=== PATIENT | male | born 1980 | race Hispanic/Latino ===

== ENCOUNTER 2017-07-08 18:21 | Emergency (ER) | payer BC ==
[~2017-07-08] VITALS: Ht 167.6 cm; Wt 85.7 kg
[2017-07-08] MEDS ORDERED: TAMSULOSIN HCL 0.4 MG CAP PO SCH (19:00)
[2017-07-08] MEDS ORDERED: SODIUM CHLORIDE 0.9% 1000ML 1,000 ML IV SCH (19:00)
[2017-07-08] MEDS ORDERED: MORPHINE SULFATE 4 MG/ML SYR IV STA (19:32)
[2017-07-08] MEDS ORDERED: HYDROCODONE/APAP 5MG-325MG TAB PO ONE (20:00)
== END 2017-07-08 20:34 | disposition home or self-care (01) ==
LOC: FSED 18:21
DX: R10.9 Unspecified abdominal pain (principal); Z87.442 Personal history of urinary calculi
CPT/HCPCS: 87086; 99284; J2270

== ENCOUNTER 2017-07-22 17:39 | Emergency (ER) | payer BC ==
[~2017-07-22] VITALS: Ht 167.6 cm; Wt 85.7 kg
[2017-07-22 18:49] LABS: BASOPHILS % 0.3 % (0.0-1.0); EOSINOPHILS # (AUTO) 0.2 (0.0-0.4); EOSINOPHILS % 2.1 % (0.0-6.0); HEMATOCRIT 41.4 % (38.2-49.6); LYMPHOCYTES # (AUTO) 1.6 (1.0-3.2); LYMPHOCYTES % 19.9 % (18.0-39.1); MEAN CORPUSCULAR HEMOGLOBIN 29.4 pg (28-32); MEAN CORPUSCULAR HGB CONC 36.2 g/dL (31-35); MEAN CORPUSCULAR VOLUME 81.2 fL (81-99); MONOCYTES # (AUTO) 0.5 (0.2-0.8); MONOCYTES % 6.4 % (4.4-11.3); NEUTROPHILS # (AUTO) 5.5 (2.1-6.9); NEUTROPHILS % 70.4 % (38.7-80.0); PLATELET COUNT 208 x10e3/uL (140-360); RED CELL DISTRIBUTION WIDTH 12.5 % (11.7-14.4)
[2017-07-22 18:53] LABS: BILIRUBIN,URINE NEGATIVE (NEGATIVE); CLARITY,URINE SL CLOUDY (CLEAR); COLOR,URINE YELLOW (YELLOW); KETONES,URINE NEGATIVE (NEGATIVE); LEUKOCYTE ESTERASE ,URINE NEGATIVE (NEGATIVE); NITRITE,URINE NEGATIVE (NEGATIVE); PROTEIN,URINE DIPSTICK NEGATIVE (NEGATIVE); URINE UROBILINOGEN 0.2 mg/dL (0.2 - 1)
[2017-07-22 19:04] LABS: ALANINE AMINOTRANSFERASE 56 IU/L (0-55); ALBUMIN 4.1 g/dL (3.5-5.0); ALBUMIN/GLOBULIN RATIO 1.6 (0.8-2.0); ALKALINE PHOSPHATASE 66 IU/L (40-150); ANION GAP 12.7 mmol/L (8-16); BLOOD UREA NITROGEN 14 mg/dL (7-26); BUN/CREATININE RATIO 17 (6-25); CALCIUM 9.6 mg/dL (8.4-10.2); CARBON DIOXIDE 24 mmol/L (22-29); CHLORIDE 108 mmol/L (98-107); CREATININE, SERUM 0.82 mg/dL (0.72-1.25); EST GLOMERULAR FILTRATION RATE > 60 ML/MIN (60-); GLUCOSE 132 mg/dL (74-118); POTASSIUM 3.7 mmol/L (3.5-5.1); SODIUM 141 mmol/L (136-145)
[2017-07-22 19:07] LABS: BACTERIA,URINE FEW /HPF; HYALINE CASTS 0-1 (0-1); RBC,URINE 0-5 /HPF (0-5); WBC,URINE (MAN) 0-5 /HPF (0-5)
[2017-07-22 19:08] LABS: EPITHELIAL CELLS,URINE FEW /LPF
[2017-07-22] MEDS ORDERED: KETOROLAC TROMETHAMINE 30 MG/ML VIAL IV STA (19:23)
[2017-07-22] MEDS ORDERED: SODIUM CHLORIDE 0.9% 1000ML 1,000 ML IV SCH (19:30)
--- NOTE | 2017-07-22 20:08 | Diagnostic Imaging Report ---
EXAM: CT Abdomen and Pelvis WITHOUT contrast INDICATION: \S\R/O KIDNEY STONES \[id number] \S\1928 \S\Y COMPARISON: None. TECHNIQUE: Abdomen and pelvis were scanned utilizing a multidetector helical scanner from the lung base to the pubic symphysis without administration of IV contrast. Absence of intravenous contrast decreases sensitivity for detection of focal lesions and vascular pathology. Coronal and sagittal reformations were obtained. Routine protocol was performed. IV CONTRAST: None ORAL CONTRAST: Water COMPLICATIONS: None RADIATION DOSE: Total DLP: ... mGy*cm Estimated effective dose: (DLP x 0.015 x size factor) mSv CTDIvol has been reviewed. It is below the limits set by the Radiation Protocol Committee (RPC). FINDINGS: LINES and TUBES: None. LOWER THORAX: Unremarkable HEPATOBILIARY: The liver is diffusely hypodense consistent with hepatic steatosis. No focal hepatic lesions. No biliary ductal dilation. GALLBLADDER: No radio-opaque stones or sludge. No wall thickening. SPLEEN: No splenomegaly. PANCREAS: No focal masses or ductal dilatation. ADRENALS: No adrenal nodules KIDNEYS/URETERS: No hydronephrosis. No cystic or solid mass lesions. A 0.4 x 0.3 x 0.4 cm calculus at the right ureterovesicular junction results in minimal inflammatory changes of the ureter without hydronephrosis. No additional urinary tract calculi noted. GI TRACT: No abnormal distention, wall thickening, or evidence of bowel obstruction. Appendix is normal. PELVIC ORGANS/BLADDER: Unremarkable. LYMPH NODES: No lymphadenopathy. VESSELS: Unremarkable. PERITONEUM / RETROPERITONEUM: No free air or fluid. BONES: Unremarkable. SOFT TISSUES: Fat-containing indirect right inguinal hernia. IMPRESSION: Right ureterovesicular junction 0.4 cm calculus is without upstream hydroureteronephrosis. Hepatic steatosis. Signed by: DR. Chandana Salmon MD on 07/22/2017 8:05 PM
[2017-07-22 21:26] VITALS: BP 138/79
== END 2017-07-22 21:35 | disposition home or self-care (01) ==
LOC: ER 17:39
DX: N20.0 Calculus of kidney (principal); J45.909 Unspecified asthma, uncomplicated
CPT/HCPCS: 36415; 74176; 80053; 81001; 85025; 99284; J1885; J7030

== ENCOUNTER 2019-12-29 20:22 | Emergency (ER) | payer SELFPAY ==
[~2019-12-29] VITALS: Ht 167.6 cm; Wt 85.7 kg
[2019-12-29] MEDS ORDERED: KETOROLAC TROMETHAMINE 60 MG/2 ML VIAL IM ONE (20:45)
[2019-12-29] MEDS ORDERED: KETOROLAC TROMETHAMINE 30 MG/ML VIAL ONE (20:59)
--- NOTE | 2019-12-29 21:24 | Diagnostic Imaging Report ---
EXAM: CT Abdomen and Pelvis WITHOUT contrast INDICATION: Right flank pain for 3 days COMPARISON: CT abdomen and pelvis on 07/22/2017. TECHNIQUE: Abdomen and pelvis were scanned utilizing a multidetector helical scanner from the lung base to the pubic symphysis without administration of IV contrast. Absence of intravenous contrast decreases sensitivity for detection of focal lesions and vascular pathology. Coronal and sagittal reformations were obtained. Routine protocol was performed. IV CONTRAST: None ORAL CONTRAST: None COMPLICATIONS: None RADIATION DOSE: Total DLP: 811 mGy*cm Estimated effective dose: (DLP x 0.015 x size factor) mSv CTDIvol has been reviewed. It is below the limits set by the Radiation Protocol Committee (RPC). Dose modulation, iterative reconstruction, and/or weight based adjustment of the mA/kV was utilized to reduce the radiation dose to as low as reasonably achievable. FINDINGS: LINES and TUBES: None. LOWER THORAX: Unremarkable HEPATOBILIARY: The liver is diffuse hypodense compared to the spleen, consistent with diffuse hepatic diffuse hepatic steatosis. No focal hepatic lesions. No biliary ductal dilation. GALLBLADDER: No radio-opaque stones or sludge. No wall thickening. SPLEEN: No splenomegaly. PANCREAS: No focal masses or ductal dilatation. ADRENALS: No adrenal nodules KIDNEYS/URETERS: No hydronephrosis. No cystic or solid mass lesions. No stones. GI TRACT: No abnormal distention, wall thickening, or evidence of bowel obstruction. Appendix is normal. PELVIC ORGANS/BLADDER: Unremarkable. LYMPH NODES: No lymphadenopathy. VESSELS: Unremarkable. PERITONEUM / RETROPERITONEUM: No free air or fluid. BONES: Unremarkable. SOFT TISSUES: Unremarkable. IMPRESSION: 1. No obstructive renal or ureteral stones bilaterally. No acute abnormality to explain the patient's symptoms were identified. 2. Mild hepatic steatosis. Signed by: Ketan Ball MD on 12/29/2019 9:21 PM
--- NOTE | 2019-12-29 21:50 | Emergency Department Note ---
History of Present Illnes History of Present Illness Chief Complaint: right lower Back Pain/ rgt flank History of Present Illness This is a 39 year old male. was doing well prior to this Historian: Patient Arrival Mode: Car History limited by: condition of the patient (normal) Regulatory Law Specialist Required: No Onset (how long ago): day(s) (2) Location: see above Radiation: Reports non-radiation Severity: moderate Onset quality: gradual Duration (how long): day(s) (2) Timing of current episode: constant Progression: worsening Chronicity: new Context: Denies recent illness, Denies recent surgery, Denies recent immobilization, Denies recent travel, Denies trauma/injury, Denies new medications, Denies hx of DVT/PE, Denies non-compliance w/ medications Relieving factors: rest Exacerbating factors: movement Associated symptoms: Reports denies other symptoms Treatments prior to arrival: none Past Medical/Family History Physician Review I have reviewed the patient's past medical and family history. Any updates have been documented here. Past Medical History Recent Fever: No Clinical Suspicion of Infectio: No New/Unexplained Change in Ment: No Past Medical History: Asthma, Kidney Stones Past Surgical History: None Other Surgery: STENT IN KIDNEY Social History Smoking Cessation: Never Smoker Counseling Performed: No Alcohol Use: None Any Illegal Drug Use: No Physically hurt or threatened: No Other Last Tetanus: UTD Any Pre-Existing Lines (PICC,: No Review of Systems Review of Systems Constitutional: Reports no symptoms EENTM: Reports no symptoms Cardiovascular: Reports no symptoms Respiratory: Reports no symptoms Gastrointestinal: Reports no symptoms Genitourinary: Reports no symptoms Musculoskeletal: Reports as per HPI Integumentary: Reports no symptoms Neurological: Reports no symptoms Psychological: Reports no symptoms Endocrine: Reports no symptoms Hematological/Lymphatic: Reports no symptoms Review of other systems: All other systems negative Physical Exam Related Data Allergies: Coded Allergies: No Known Allergies (Unverified , 07/08/17) Triage Vital Signs Vital Signs Date Time Temp Pulse Resp B/P (MAP) Pulse Ox O2 Delivery O2 Flow Rate FiO2 12/29/19 20:34 98.7 89 18 175/99 100 Room Air Vital signs reviewed: Yes Physical Exam CONSTITUTIONAL Constitutional: Present well-developed, Present well-nourished HENT HENT: Present normocephalic, Present atraumatic, Present oropharynx clear/moist, Present nose normal HENT L/R: Present left ext ear normal, Present right ext ear normal EYES Eyes: Reports PERRL, Reports conjunctivae normal NECK Neck: Present ROM normal, Present supple PULMONARY Pulmonary: Present effort normal, Present breath sounds normal CARDIOVASCULAR Cardiovascular: Present regular rhythm, Present heart sounds normal, Present capillary refill normal, Present normal rate GASTROINTESTINAL Abdominal: Present soft, Present nontender, Present bowel sounds normal GENITOURINARY Genitourinary: Present exam deferred SKIN Skin: Present warm, Present dry MUSCULOSKELETAL Musculoskeletal: Present ROM normal, Present tenderness (rgt cva tenderness) NEUROLOGICAL Neurological: Present alert, Present oriented x 3, Present no gross motor or sensory deficits PSYCHOLOGICAL Psychological: Present mood/affect normal, Present judgement normal Results Laboratory Lab results reviewed: Yes Laboratory comments ua sp gravity greater than 1.03 Imaging Imaging results reviewed: Yes Impressions [place] [id number] Patient Name: JEOVANY VILLA JR MR #: [id number] : 1980 Age/Sex: 39/M Req #: [id number] Adm Physician: Ordered by: CHARLINE PRADO Report #: [id number] Location: [facility] Room/Bed: Procedure: [id number] HOPD/CT ABD/PEL WO CONTRAST-HOPD Exam Date: Exam Time: REPORT STATUS: Signed EXAM: CT Abdomen and Pelvis WITHOUT contrast INDICATION: Right flank pain for 3 days COMPARISON: CT abdomen and pelvis on 07/22/2017. TECHNIQUE: Abdomen and pelvis were scanned utilizing a multidetector helical scanner from the lung base to the pubic symphysis without administration of IV contrast. Absence of intravenous contrast decreases sensitivity for detection of focal lesions and vascular pathology. Coronal and sagittal reformations were obtained. Routine protocol was performed. IV CONTRAST: None ORAL CONTRAST: None COMPLICATIONS: None RADIATION DOSE: Total DLP: 811 mGy*cm Estimated effective dose: (DLP x 0.015 x size factor) mSv CTDIvol has been reviewed. It is below the limits set by the Radiation Protocol Committee (RPC). Dose modulation, iterative reconstruction, and/or weight based adjustment of the mA/kV was utilized to reduce the radiation dose to as low as reasonably achievable. FINDINGS: LINES and TUBES: None. LOWER THORAX: Unremarkable HEPATOBILIARY: The liver is diffuse hypodense compared to the spleen, consistent with diffuse hepatic diffuse hepatic steatosis. No focal hepatic lesions. No biliary ductal dilation. GALLBLADDER: No radio-opaque stones or sludge. No wall thickening. SPLEEN: No splenomegaly. PANCREAS: No focal masses or ductal dilatation. ADRENALS: No adrenal nodules KIDNEYS/URETERS: No hydronephrosis. No cystic or solid mass lesions. No stones. GI TRACT: No abnormal distention, wall thickening, or evidence of bowel obstruction. Appendix is normal. PELVIC ORGANS/BLADDER: Unremarkable. LYMPH NODES: No lymphadenopathy. VESSELS: Unremarkable. PERITONEUM / RETROPERITONEUM: No free air or fluid. BONES: Unremarkable. SOFT TISSUES: Unremarkable. IMPRESSION: 1. No obstructive renal or ureteral stones bilaterally. No acute abnormality to explain the patient's symptoms were identified. 2. Mild hepatic steatosis. Signed by: Doroteo Marquez MD on 12/29/2019 9:21 PM Dictated By: DOROTEO MARUQEZ MD 20 Transcribed By: CLIFF on 12/29/192120 COPY TO: CHARLINE PRADO~ Assessment & Plan Medical Decision Making MDM uti, kidney stone Assessment & Plan Final Impression: (1) Muscle strain (2) Dehydration Depart Disposition: HOME, SELF-CARE Last Vital Signs Date Time Temp Pulse Resp B/P (MAP) Pulse Ox O2 Delivery O2 Flow Rate FiO2 12/29/19 20:34 98.7 89 18 175/99 100 Room Air Home Meds Active Scripts Cyclobenzaprine Hcl (FLEXERIL) 5 Mg Tablet, 10 MG PO Q8H PRN for MUSCLE SPASMS, #30 TAB take after toradol to control pain if need be Prov:CHARLINE PRADO 12/29/19 Ketorolac Tromethamine (TORADOL) 10 Mg Tablet, 10 MG PO Q6H PRN for MODERATE PAIN (4-6), #20 TAB Prov:CHARLINE PRADO 12/29/19 Medications in the ED Ketorolac Tromethamine 60 mg ONCE ONCE IM Last administered on 12/29/19at 21:00; Admin Dose 60 MG; Start 12/29/19 at 20:45; Stop 12/29/19 at 20:46; Status DC Ketorolac Tromethamine 60 mg STK-MED ONCE .ROUTE ; Start 12/29/19 at 20:59; Stop 12/29/19 at 20:54; Status DC CHARLINE PRADO Dec 29, 2019 21:50
[2019-12-29] MEDS ORDERED: KETOROLAC TROME10 MG PO (21:56)
[2019-12-29] MEDS ORDERED: CYCLOBENZAPRINE5 MG PO (21:56)
--- OUTSIDE RECORDS SUMMARY | 2019-12-29 23:22 | XMS REPORT | Continuity of Care Document ---
Author Author [facility] t Organization [facility] Address [address] [place] [address] Phone Unavailable Care Team Providers Care Test Department Helper Name Role Phone NO, PCP PCP Unavailable Jimena PRADO Attphys Unavailable Ravi MONIQUE Attphys Unavailable Payers Payer Name Policy Type Policy Number Effective Date Expiration Date S jimy [employer] [place] [employer] [place] Ppo [id number] I [facility] Problems This patient has no known problems. Allergies, Adverse Reactions, Alerts This patient has no known allergies or adverse reactions. Medications This patient has no known medications. Procedures Procedure Date / Time Performed Performing Clinician Sour e CT of abdomen and pelvis without contrast 2017-07-22 00:00:0 0 NIRANJAN MONIQUE [facility] Encounters Start Date/Time End Date/Time Encounter Type Admission Type Attendi [facility] Care Department Encounter ID Source 2017-07-22 17:39:00 2017-07-22 21:35:00 Departed Emergency Room 1 NIRANJAN MONIQUE [facility] [id number] [facility] 2017-07-08 18:21:00 2017-07-08 20:34:00 Departed Emergency Room [facility] [id number] [facility] Results Test Description Test Time Test Comments Results Result Comments Source CT ABD/PEL WO CONTRAST-HOPD 2019-12-29 21:16:00 [facility] : 1980 Sex: M [facility] [address] [address] Patient Name: JEOVNAY VILLA JR MR #: [id number] : 1980 Age/Sex: 39/M Req #: [id number] Adm Physician: Ordered by: CHARLINE PRADO Report #: [id number] Location: [facility] Room/Bed: Procedure: [id number] HOPD/CT ABD/PEL WO CONTRAST-HOPD Exam Date: Exam Time: REPORT STATUS: Signed EXAM: CT Abdomen and Pelvis WITHOUT contrast INDICATION: Right flank pain for 3 days COMPARISON: CT abdomen and pelvis on 07/22/2017. TECHNIQUE: Abdomen and pelvis were scanned utilizing a multidetector helical scanner from the lung base to the pubic symphysis without administration of IV contrast. Absence of intravenous contrast decreases sensitivity for detection of focal lesions and vascular pathology. Coronal and sagittal reformations were obtained. Routine protocol was performed. IV CONTRAST: None ORAL CONTRAST: None COMPLICATIONS: None RADIATION DOSE: Total DLP: 811 mGy*cm Es timated effective dose: (DLP x 0.015 x size factor) mSv CTDIvol has been reviewed. It is below the limits set by the Radiation Protocol Committee (RPC). Dose modulation, iterative reconstruction, and/or weight based adjustment of the mA/kV was utilized to reduce the radiation dose to as low as reasonably achievable. FINDINGS: LINES and TUBES: None. LOWER THORAX: Unremarkable HEPATOBILIARY: The liver is diffuse hypodense compared to the spleen, consistent with diffuse hepatic diffuse hepatic steatosis. No focal hepatic lesions. No biliary ductal dilation. GALLBLADDER: No radio-opaque stones or sludge. No wall thickening. SPLEEN: No splenomegaly. PANCREAS: No focal masses or ductal dilatation. ADRENALS: No adrenal nodules KIDNEYS/URETERS: No hydronephrosis. No cystic or solid mass lesions. No stones. GI TRACT: No abnormal distention, wall thickening, or evidence of bowel obstruction. Appendix is normal. PELVIC ORGANS/BLADDER: Unremarkable. LYMPH NODES: No lymphadenopathy. VESSELS: Unremarkable. PERITONEUM / RETROPERITONEUM: No free air or fluid. BONES: Unremarkable. SOFT TISSUES: Unremarkable. IMPRESSION: 1. No obstructive renal or ureteral stones bilaterally. No acute abnormality to explain the patient's symptoms were identified. 2. Mild hepatic steatosis. Signed by: Doroteo Marquez MD on 12/29/2019 9:21 PM Dictated By: DOROTEO MARQUEZ MD 20 Transcribed By: CLIFF on 12/29/192120 COPY TO: CHARLINE PRADO CT ABDOMEN/PELVIS WO 2017-07-22 19:58:[address] [address] Patient Name: JEOVANY VILLA JR MR #: [id number] : 1980 Age/Sex: 37/M Req #: [id number] Adm Physician: Ordered by: NIRANJAN MONIQUE MD Report #: [id number] Location: ER Room/Bed: Procedure: [id number] CT/CT ABDOMEN/PELVIS WO Exam Date: 07/22/17 Exam Time: 1929 REPORT STATUS: Signed EXAM: CT Abdomen and Pelvis WITHOUT contrast INDICATION: COMPARISON: None. TECHNIQUE: Abdomen and pelvis were scanned utilizing a multidetector helical scanner from the lung base to the pubic symphysis without administration of IV contrast. Absence of intravenous contrast decreases sensitivity for detection of focal lesions and vascular pathology. Coronal and sagittal reformations were obtained. Routine protocol was performed. IV CONTRAST: None ORAL CONTRAST: Water COMPLICATIONS: None RADIATION DOSE: Total DLP: ... mGy*cm Estimated effective dose: (DLP x 0.015 x size factor) mSv CTDIvol has been reviewed. It is below the limits set by the Radiation Protocol Committee (RPC). FINDINGS: LINES and TUBES: None. LOWER THORAX: Unremarkable HEPATOBILIARY: The liver is diffusely hypodense consistent with hepatic steatosis. No focal hepatic lesions. No biliary ductal dilation. GALLBLADDER: No radio-opaque stones or sludge. No wall thickening. SPLEEN: No splenomegaly. PANCREAS: No focal masses or ductal dilatation. ADRENALS: No adrenal nodules KIDNEYS/URETERS: No hydronephrosis. No cystic or solid mass lesions. A 0.4 x 0.3 x 0.4 cm calculus at the right ureterovesicular junction results in minimal inflammatory changes of the ureter without hydronephrosis. No additional urinary tract calculi noted. GI TRACT: No abnormal distention, wall thickening, or evidence of bowel obstruction. Appendix is normal. PELVIC ORGANS/BLADDER: Unremarkable. LYMPH NODES: No lymphadenopathy. VESSELS: Unremarkable. PERITONEUM / RETROPERITONEUM: No free air or fluid. BONES: Unremarkable. SOFT TISSUES: Fat-containing indirect right inguinal hernia. IMPRESSION: Right ureterovesicular junction 0.4 cm calculus is without upstream hydroureteronephrosis. Hepatic steatosis. Signed by: DR. Chandana Dickens MD on 07/22/2017 8:05 PM Dictated By: CHANDANA DICKENS MD 04 Transcribed By: CLIFF on 07/22/172004 COPY TO: NIRANJAN MONIQUE MD Urine Epithelial Cells 2017-07-22 19:08:00 Test Item Urine Epithelial Cells (test code = 40004-1) FEW NONE [facility] [id number] 19:07:00* Test Item Value Reference Range Interpretation Comments Urine WBC (test code = 5821-4) 0-5 0-5 [facility] [id number] 19:07:00* Test Item Value Reference Range Interpretation Comments Urine RBC (test code = 15811-0) 0-5 0-5 [facility] Fuqzimsy2648-01-55 19:07:00* Test Item Value Reference Range Interpretation Comments Urine Bacteria (test code = 07527-7) FEW NONE [facility] Hyaline Ejqdd1686-62-26 19:07:00* Test Item Value Reference Range Interpretation Comments Urine Hyaline Casts (test code = 71295-9) 0-1 0-1 [facility] Etqcm9655-96-83 19:04:00* Test Item Value Reference Range Interpretation Comments Sodium Level (test code = 2951-2) 141 136-145 [facility] CenterPotassium Fuitk1951-30-84 19:04:00* Test Item Value Reference Range Interpretation Comments Potassium Level (test code = 2823-3) 3.7 3.5-5.1 [facility] CenterChloride Sgzud0651-21-42 19:04:00* Test Item Value Reference Range Interpretation Comments Chloride Level (test code = 2075-0) 108 98-107 H [facility] CenterCarbon Dioxide Agdpv1797-88-08 19:04:00* Test Item Value Reference Range Interpretation Comments Carbon Dioxide Level (test code = 2028-9) 24 22-29 [facility] CenterAnion Qgf5849-06-61 19:04:00* Test Item Value Reference Range Interpretation Comments Anion Gap (test code = 31817-7) 12.7 8-16 [facility] CenterBlood Urea Jjhqyypu4378-08-27 19:04:00* Test Item Value Reference Range Interpretation Comments Blood Urea Nitrogen (test code = 3094-0) 14 7-26 [facility] CenterCreatinine2018 19:04:00* Test Item Value Reference Range Interpretation Comments Creatinine (test code = 2160-0) 0.82 0.72-1.25 [facility] CenterBUN/Creatinine Ejttp6782-83-64 19:04:00* Test Item Value Reference Range Interpretation Comments BUN/Creatinine Ratio (test code = 3097-3) 17 6-25 [facility] CenterEstimat Glomerular Filtration Rate 2017-07-22 19:04:00* Test Item Value Reference Range Interpretation Comments Estimat Glomerular Filtration Rate (test code = 58240-8) 60- >60 Ranges were taken from the National Kidney Disease Education Program and the [facility] Foundation literature.Reference ranges:60 or greater: Dcrzpt71-59 ( for 3 consecutive months): Chronic kidney disease 15 or less: Kidney failureP[facility] Medical CenterGlucose Ipncr0607-62-91 19:04:00* Test Item Value Reference Range Interpretation Comments Glucose Level (test code = BNC7728) 132 74-118 H [facility] CenterCalcium Itfjs9349-63-92 19:04:00* Test Item Value Reference Range Interpretation Comments Calcium Level (test code = 56059-8) 9.6 8.4-10.2 [facility] CenterTotal Fypfsjurh8715-44-39 19:04:00* Test Item Value Reference Range Interpretation Comments Total Bilirubin (test code = 1975-2) 0.4 0.2-1.2 [facility] CenterAspartate Amino Transf (AST/SGOT) 2017-07-22 19:04:00* Test Item Value Reference Range Interpretation Comments Aspartate Amino Transf (AST/SGOT) (test code = Aspartate Amino Transf (AST/SGOT)) 24 5-34 [facility] CenterAlanine Aminotransferase (ALT/SGPT) 2017-07-22 19:04:00* Test Item Value Reference Range Interpretation Comments Alanine Aminotransferase (ALT/SGPT) (test code = 1742-6) 56 0-55 H [facility] CenterTotal Ktqfavq4945-75-19 19:04:00* Test Item Value Reference Range Interpretation Comments Total Protein (test code = 2885-2) 6.6 6.5-8.1 [facility] CenterAlbumin2018 19:04:00* Test Item Value Reference Range Interpretation Comments Albumin (test code = 1751-7) 4.1 3.5-5.0 [facility] CenterGlobulin2018 19:04:00* Test Item Value Reference Range Interpretation Comments Globulin (test code = 00383-2) 2.5 2.3-3.5 [facility] CenterAlbumin/Globulin Pqoyh7145-21-68 19:04:00 * Test Item Value Reference Range Interpretation Comments Albumin/Globulin Ratio (test code = 1759-0) 1.6 0.8-2.0 [facility] CenterAlkaline Uovqctaejrn5696-03-12 19:04:00* Test Item Value Reference Range Interpretation Comments Alkaline Phosphatase (test code = 6768-6) 66 40-150 [facility] CenterUrine Blqyx3455-76-55 18:53:00* Test Item Value Reference Range Interpretation Comments Urine Color (test code = 5778-6) YELLOW YELLOW [facility] CenterU[facility] Kplopxd5156-25-98 18:53:00* Test Item Value Reference Range Interpretation Comments Urine Clarity (test code = 64508-4) SL CLOUDY CLEAR H [facility] CenterUrine Specific Sezbodn3722-30-00 18:53:00 * Test Item Value Reference Range Interpretation Comments Urine Specific [place] (test code = 5811-5) 1.025 1.010-1.02 5 [facility] CenterU[facility] vE3640-31-31 18:53:00* Test Item Value Reference Range Interpretation Comments Urine pH (test code = 45291-0) 6 5-7 [facility] Center[facility] Leukocyte Iszzmobp0672-36-31 18:53:00* Test Item Value Reference Range Interpretation Comments Urine Leukocyte Esterase (test code = 5799-2) NEGATIVE NEGATIVE [facility] CenterU[facility] Whasidh9642-88-61 18:53:00* Test Item Value Reference Range Interpretation Comments Urine Nitrite (test code = 89571-0) NEGATIVE NEGATIVE [facility] CenterU[facility] Nueqsfi1971-32-32 18:53:00* Test Item Value Reference Range Interpretation Comments Urine Protein (test code = 5804-0) NEGATIVE NEGATIVE [facility] CenterUrine Glucose (UA)2017-07-22 18:53:00* Test Item Value Reference Range Interpretation Comments Urine Glucose (UA) (test code = 2349-9) NEGATIVE NEGATIVE [facility] CenterUrine Uwkrerv1577-02-41 18:53:00* Test Item Value Reference Range Interpretation Comments Urine Ketones (test code = 53946-4) NEGATIVE NEGATIVE [facility] CenterU[facility] Igthoovmogpk8738-80-35 18:53:00* Test Item Value Reference Range Interpretation Comments Urine Urobilinogen (test code = 88538-1) 0.2 0.2-1 [facility] CenterU[facility] Ygviliyxh7965-00-84 18:53:00* Test Item Value Reference Range Interpretation Comments Urine Bilirubin (test code = 1978-6) NEGATIVE NEGATIVE [facility] CenterU[facility] Vatfu1514-25-33 18:53:00* Test Item Value Reference Range Interpretation Comments Urine Blood (test code = 52947-9) TRACE NEGATIVE H [facility] CenterWhite Blood Piclk0214-44-38 18:50:00* Test Item Value Reference Range Interpretation Comments White Blood Count (test code = 6690-2) 7.79 4.8-10.8 [facility] CenterRed Blood Sdjjy9595-73-59 18:50:00* Test Item Value Reference Range Interpretation Comments Red Blood Count (test code = 789-8) 5.10 4.3-5.7 [facility] CenterHemoglobin2018 18:50:00* Test Item Value Reference Range Interpretation Comments Hemoglobin (test code = 27454-8) 15.0 14.0-18.0 [facility] CenterHematocrit2018 18:50:00* Test Item Value Reference Range Interpretation Comments Hematocrit (test code = 4544-3) 41.4 38.2-49.6 [facility] CenterMean Corpuscular Ytndnp4085-22-57 18:50:00* Test Item Value Reference Range Interpretation Comments Mean Corpuscular Volume (test code = 787-2) 81.2 81-99 [facility] CenterMean Corpuscular Ecelhsrifz4848-01-46 18:50:00* Test Item Value Reference Range Interpretation Comments Mean Corpuscular Hemoglobin (test code = 785-6) 29.4 28-32 [facility] CenterMean Corpuscular Hemoglobin Concent 2017-07-22 18:50:00* Test Item Value Reference Range Interpretation Comments Mean Corpuscular Hemoglobin Concent (test code = 786-4) 36.2 31-35 H [facility] CenterRed Cell Distribution Ovqld6747-83-25 18:50:00* Test Item Value Reference Range Interpretation Comments Red Cell Distribution Width (test code = 73380-3) 12.5 11.7 -14.4 [facility] CenterPlatelet Nsvjn5490-26-62 18:50:00* Test Item Value Reference Range Interpretation Comments Platelet Count (test code = 777-3) 208 140-360 [facility] CenterNeutrophils (%) (Auto)2017-07-22 18:50:00 * Test Item Value Reference Range Interpretation Comments Neutrophils (%) (Auto) (test code = 58926-1) 70.4 38.7-80.0 [facility] CenterLymphocytes (%) (Auto)2017-07-22 18:50:00 * Test Item Value Reference Range Interpretation Comments Lymphocytes (%) (Auto) (test code = 736-9) 19.9 18.0-39.1 [facility] CenterMonocytes (%) (Auto)2017-07-22 18:50:00* Test Item Value Reference Range Interpretation Comments Monocytes (%) (Auto) (test code = 5905-5) 6.4 4.4-11.3 [facility] CenterEosinophils (%) (Auto)2017-07-22 18:50:00 * Test Item Value Reference Range Interpretation Comments Eosinophils (%) (Auto) (test code = 713-8) 2.1 0.0-6.0 [facility] CenterBasophils (%) (Auto)2017-07-22 18:50:00* Test Item Value Reference Range Interpretation Comments Basophils (%) (Auto) (test code = 706-2) 0.3 0.0-1.0 [facility] CenterIM GRANULOCYTES %2017-07-22 18:50:00* Test Item Value Reference Range Interpretation Comments IM GRANULOCYTES % (test code = IM GRANULOCYTES %) 0.9 0.0- 1.0 [facility] CenterNeutrophils # (Auto)2017-07-22 18:50:00* Test Item Value Reference Range Interpretation Comments Neutrophils # (Auto) (test code = 751-8) 5.5 2.1-6.9 [facility] CenterLymphocytes # (Auto)2017-07-22 18:50:00* Test Item Value Reference Range Interpretation Comments Lymphocytes # (Auto) (test code = 01500-5) 1.6 1.0-3.2 [facility] CenterMonocytes # (Auto)2017-07-22 18:50:00* Test Item Value Reference Range Interpretation Comments Monocytes # (Auto) (test code = 742-7) 0.5 0.2-0.8 [facility] CenterEosinophils # (Auto)2017-07-22 18:50:00* Test Item Value Reference Range Interpretation Comments Eosinophils # (Auto) (test code = 711-2) 0.2 0.0-0.4 [facility] CenterBasophils # (Auto)2017-07-22 18:50:00* Test Item Value Reference Range Interpretation Comments Basophils # (Auto) (test code = 704-7) 0.0 0.0-0.1 [facility] CenterAbsolute Immature Granulocyte (auto 2017-07-22 18:50:00* Test Item Value Reference Range Interpretation Comments Absolute Immature Granulocyte (auto (sanket t code = Absolute Immature Granulocyte (auto) 0.07 0-0.1 [facility]
== END 2019-12-29 22:05 | disposition home or self-care (01) ==
LOC: FSED 20:30
DX: S39.012A Strain of muscle, fascia and tendon of lower back, initial encounter (principal); E86.0 Dehydration; J45.909 Unspecified asthma, uncomplicated; Z87.442 Personal history of urinary calculi
CPT/HCPCS: 74176; 99283; J1885

== ENCOUNTER 2020-12-02 17:58 | Emergency (ER) | payer BC, OTHER ==
[~2020-12-02] VITALS: Ht 170.2 cm; Wt 83.9 kg
[~2020-12-02 17:58] MED LIST: CYCLOBENZAPRINE5 MG PO; KETOROLAC TROME10 MG PO
[2020-12-02] MEDS ORDERED: SODIUM CHLORIDE 0.9% 1000ML 1,000 ML IV STA (18:26)
[2020-12-02] MEDS ORDERED: ONDANSETRON HCL INJ 2MG/ML 2ML 2 MG/ML VIAL IV ONE (18:30)
[2020-12-02] MEDS ORDERED: KETOROLAC TROMETHAMINE 30 MG/ML VIAL IV ONE (18:30)
[2020-12-02] MEDS ORDERED: FAMOTIDINE 20 MG/2 ML VIAL IV ONE ×2 (18:30→18:45)
[2020-12-02] MEDS ORDERED: SODIUM CHLORIDE 0.9% 50ML 50 ML ONE (18:43)
[2020-12-02] MEDS ORDERED: IOPAMIDOL 370 MG/ML 200 ML INFUS..BTL INJ ONE (18:44)
[2020-12-02] MEDS ORDERED: SODIUM CHLORIDE 0.9% 1000ML 1,000 ML ONE (18:45)
[2020-12-02] MEDS ORDERED: KETOROLAC TROMETHAMINE 30 MG/ML VIAL ONE (18:45)
[2020-12-02] MEDS ORDERED: ONDANSETRON HCL INJ 2MG/ML 2ML 2 MG/ML VIAL ONE (18:45)
[2020-12-02] MEDS ORDERED: ONDANSETRON ODT4 MG PO (19:18)
[2020-12-02] MEDS ORDERED: OMEPRAZOLE20 M2 PO (19:18)
[2020-12-02 20:42] VITALS: BP 140/80
== END 2020-12-02 20:30 | disposition home or self-care (01) ==
LOC: FSED 18:10
DX: R10.11 Right upper quadrant pain (principal); K21.9 Gastro-esophageal reflux disease without esophagitis; J45.909 Unspecified asthma, uncomplicated; Z87.442 Personal history of urinary calculi
CPT/HCPCS: 74177; 80048; 80076; 81003; 85025; 96374; 96375; 96376; 99284; J1885; J2405; J7030; Q9967